=== PATIENT | male | born 1945 | race Caucasian/White ===

== ENCOUNTER → 2024-12-26 12:38 | Outpatient (REF) | payer OTHER, SELFPAY | LOC: MRI 3T 12:38 | PROVIDERS: ATTENDING PHYSICIAN Urology; FAMILY PHYSICIAN Family Medicine | DX: R97.20 Elevated prostate specific antigen [PSA] (principal) | CPT/HCPCS: 72197; A9575 ==

== ENCOUNTER 2025-05-12 06:21 | Day surgery (SDC) | payer OTHER, SELFPAY ==
[2025-05-12 07:16] LABS: Glucose - Point of Care 184 mg/dl (70-99)
== END 2025-05-12 08:49 | disposition home or self-care (01) ==
LOC: GI 06:21
PROVIDERS: ATTENDING PHYSICIAN Internal Medicine Gastroenterology
DX: Z12.11 Encounter for screening for malignant neoplasm of colon (principal); K57.30 Diverticulosis of large intestine without perforation or abscess without bleeding; K64.8 Other hemorrhoids; K63.5 Polyp of colon; K62.1 Rectal polyp; D12.2 Benign neoplasm of ascending colon
CPT/HCPCS: 45385; 45380; 82962; 88305